=== PATIENT | female | born 1955 | race Caucasian/White ===

== ENCOUNTER → 2017-06-15 | Outpatient (CLI) | payer BC ==
[~2017-06-15] MED LIST: ADVAIR HFA 230M12 GM INH; ALBUTEROL2.5 MG/0.5 INH; ALTACE10 MG PO; AMARYL2 MG PO; ASPIR 8181 MG PO; CARBOPLATIN150 MG; CENTRUM SILVER1 EAC4 PO; DIPHENHYDRAM50 MG/M2; FLOMAX0.4 MG PO; GLUCOPHAGE XR750 MG PO; LEXAPRO20 MG PO; MUCINEX TA600 MG/TA2 PO; NEURONTIN 300300 M1 PO; NORCO 5-325 TA1 EACH PO; ONDANSETRON HCL4 M2 PO; ONDANSETRON ODT8 MG; PEPCID; PERCOCET 5-3251 EACH PO; PRAVACHOL20 MG PO; PROAIR HFA8.5 GM INH; SPIRIVA INH; TAXOL 30 M30 MG/5 M1; VITAMIN D-32000 UNIT PO; ZOFRAN ODT4 MG PO
== END ==
LOC: RAD 12:06
DX: R09.89 Other specified symptoms and signs involving the circulatory and respiratory systems (principal)